=== PATIENT | female | born 1990 | race Caucasian/White ===

== ENCOUNTER → 2017-01-23 | Outpatient (CLI) | payer OTHER ==
[2017-01-23 13:10] LABS: BASOPHILS # (AUTO) 0.1 10^3/uL (0.0-0.1); BASOPHILS % (AUTO) 1.5 %; EOSINOPHILS # (AUTO) 0.3 10^3/uL (0.0-0.7); EOSINOPHILS % (AUTO) 4.8 %; HCT - HEMATOCRIT 40.5 % (37.0-47.0); HGB - HEMOGLOBIN 13.4 g/dL (12.0-16.0); LYMPHOCYTES # (AUTO) 1.1 10^3/uL (1.5-3.5); LYMPHOCYTES % (AUTO) 16.7 %; MEAN CORPUSCULAR HEMOGLOBIN 29.8 pg (27.0-31.0); MEAN CORPUSCULAR HGB CONC 33.1 g/dL (32.0-36.0); MEAN CORPUSCULAR VOLUME 89.9 fL (81.0-99.0); MEAN PLATELET VOLUME 7.3 fL (7.9-10.8); MONOCYTES # (AUTO) 0.4 10^3/uL (0.0-1.0); MONOCYTES % (AUTO) 6.1 %; NEUTROPHILS # (AUTO) 4.6 10^3/uL (1.5-6.6); NEUTROPHILS % (AUTO) 70.9 %; RED BLOOD COUNT 4.51 10^6/uL (4.20-5.40); RED CELL DISTRIBUTION WIDTH 14.6 % (12.0-15.0); UNCORRECTED WHITE BLOOD COUNT 6.5 x10^3/uL; WHITE BLOOD COUNT 6.5 x10^3/uL (4.8-10.8)
[2017-01-23 13:21] LABS: BILIRUBIN,TOTAL 0.4 mg/dL (0.2-1.0); CALCIUM 8.9 mg/dL (8.5-10.3); CREATININE 0.7 mg/dL (0.4-1.0); POTASSIUM 3.9 mmol/L (3.5-5.0); TOTAL PROTEIN 7.4 g/dL (6.7-8.2)
== END ==
LOC: LAB.R 08:00
PROVIDERS: ATTEND Nurse Practitioner Primary Care
DX: Z00.00 Encounter for general adult medical examination without abnormal findings (principal); Q90.9 Down syndrome, unspecified
CPT/HCPCS: 80053; 84443; 85025

== ENCOUNTER 2017-10-24 16:57 | Outpatient (CLI) | payer BC | END 2017-10-24 16:58 | disposition critical access hospital (66) | LOC: EMS 16:57 | PROVIDERS: ATTEND Surgery | DX: M54.5 Low back pain (principal); W17.89XA Other fall from one level to another, initial encounter; Y92.008 Other place in unspecified non-institutional (private) residence as the place of occurrence of the external cause | CPT/HCPCS: A0425; A0429 ==

== ENCOUNTER 2017-10-24 17:04 | Emergency (ER) | payer BC ==
[2017-10-24] MEDS ORDERED: MORPHINE 10 MG/ML VIAL IM STA (17:13)
--- NOTE | 2017-10-24 17:19 | ED Physician Documentation ---
PD HPI BACK INJURY - Stated complaint Stated Complaint: FALL BACK PX - History obtained from History obtained from: Patient, Family (both parents) - History of Present Illness Location: Other (26-year-old woman with history of Down syndrome, but seems to be very high functioning. They are redoing their deck and they did not have railings. She moved a chair over by that and fell off the deck about 4 feet onto her back and complains of severe mid to low back pain. She has no other apparent injuries other than a scrape on her foot, but does not remember actually falling.) Review of Systems Ten Systems: 10 systems reviewed and negative Constitutional: denies: Fever, Chills Nose: denies: Rhinorrhea / runny nose, Congestion Cardiac: denies: Chest pain / pressure, Palpitations Respiratory: denies: Dyspnea, Cough PD PAST MEDICAL HISTORY - Past Medical History Past Medical History: Yes Neuro: Other (Janell) Other Past Medical History: Down Syndrome - Past Surgical History Past Surgical History: No - Present Medications Home Medications: Ambulatory Orders Medication Instructions Recorded Confirmed No Known Home Medications [No 10/24/17 10/24/17 Known Home Medications] - Allergies Allergies/Adverse Reactions: Allergies Allergy/AdvReac Type Severity Reaction Status Date / Time Penicillins Allergy Anaphylaxis Verified 10/24/17 17:13 - Social History Does the pt smoke?: No Smoking Status: Never smoker PD ED PE NORMAL - Vitals Vital signs reviewed: Yes - General General: Alert and oriented X 3, No acute distress - HEENT HEENT: PERRL, EOMI - Neck Neck: No bony TTP, Other (Maintained in a c-collar pending imaging given potential distracting injury) - Cardiac Cardiac: RRR, No murmur - Respiratory Respiratory: No respiratory distress, Clear bilaterally - Abdomen Abdomen: Normal bowel sounds, Soft, Non tender - Back Back: Other (Quite tender to the mid and lower thoracic spine) - Derm Derm: Normal color, Warm and dry, Other (Nontender abrasion over the top of the foot, a little bigger than a quarter.) - Extremities Extremities: Other (The patient has equal and normal Achilles and patellar reflexes bilaterally. Normal sensation in all areas of the legs. Patient denies saddle anesthesia. Normal strength in flexion-extension at the ankles, knees, and flexion of the hips.) - Neuro Neuro: Alert and oriented X 3, Normal speech - Psych Psych: Normal mood, Normal affect Results - Vitals Vitals: Vital Signs - 24 hr 10/24/17 10/24/17 10/24/17 17:06 18:17 18:40 Temperature 36.6 C 36.3 C L 36.6 C Heart Rate 77 80 75 Respiratory 22 20 12 Rate Blood Pressure 116/69 108/55 L 100/59 L O2 Saturation 98 100 99 Oxygen O2 Source Room air - Labs Labs: Laboratory Tests 10/24/17 10/24/17 10/24/17 18:07 18:07 18:07 WBC 10.2 RBC 4.83 Hgb 14.1 Hct 43.8 MCV 90.6 MCH 29.2 MCHC 32.2 RDW 14.1 Plt Count 301 MPV 6.9 L Neut # 8.2 H Lymph # 1.3 L Hood # 0.3 Eos # 0.2 Baso # 0.2 H Absolute Nucleated RBC 0.00 Nucleated RBC % 0.0 PT 12.6 INR 1.1 Sodium 138 Potassium 3.9 Chloride 102 Carbon Dioxide 29 Anion Gap 7.0 BUN 15 Creatinine 0.7 Estimated GFR (MDRD) 101 Glucose 107 H Calcium 9.7 Total Bilirubin 0.2 AST 30 ALT 19 Alkaline Phosphatase 75 Total Protein 8.3 H Albumin 4.2 Globulin 4.1 Albumin/Globulin Ratio 1.0 Lipase 26 Serum HCG, Qual NEGATIVE - Rads (name of study) CT Head Radiology: EMP read contemporaneously (NAD) CT C spine Radiology: EMP read contemporaneously (DJD no frx (C collar taken off at 1830)) CT T Spine Radiology: EMP read contemporaneously (Unstable 3 column Chance fracture of T11 involving the left facet joint with mild spinal canal stenosis due to buckling of the posterior cortex, there is no evident epidural hemorrhage. There are also fractures of the T10 inferior articulating facets and T10 spinous process, mild subluxation of the T10 and T11 facet joints without dislocation. There are superior endplate fractures of T7 and T10. She also has T6 and T9 spinous process fractures and a nondisplaced left posterior fourth rib fracture.) CT L spine Radiology: EMP read contemporaneously (no L spine frx) PD MEDICAL DECISION MAKING - ED course ED course: 26-year-old woman with severe back pain after a fall directly onto her back. No possibility of per her and her parents. She went over to CT and on my view of the CT she has a at least 2 column complicated fracture of her thoracic spine T10 and T11. She is neuro intact. [facility] was contacted at 6 PM for orthopedic consultation and likely transfer. She was accepted there by Dr. Vy Vidal at 6:50 PM, cobras were completed in the family consented. Departure - Departure Disposition: 02 Transfer Acute Care Hosp Clinical Impression: Fall from height of greater than 3 feet, Spinous process fracture Closed T10 fracture Qualifiers: Encounter type: initial encounter Fracture morphology: burst- unstable Qualified Code(s): S22.072A - Unstable burst fracture of T9-T10 vertebra, initial encounter for closed fracture Injury of back Qualifiers: Encounter type: initial encounter Qualified Code(s): S39.92XA - Unspecified injury of lower back, initial encounter Rib fracture Qualifiers: Encounter type: initial encounter Rib fracture type: single rib Fracture type: closed Laterality: left Qualified Code(s): S22.32XA - Fracture of one rib, left side, initial encounter for closed fracture Condition: Stable
[2017-10-24] MEDS ORDERED: ONDANSETRON ODT 4 MG TABLET TL STA (17:24)
[2017-10-24] MEDS ORDERED: SODIUM CHLORIDE 0.9% 1,000 ML IV ONE (17:54)
[2017-10-24] MEDS ORDERED: MORPHINE 2 MG/ML SYRINGE IVP STA (18:10)
--- NOTE | 2017-10-24 18:12 | CT Report ---
EXAM: CT HEAD EXAM DATE: 10/24/2017 06:02 PM. CLINICAL HISTORY: Fall, amnesia, back injury. COMPARISON: None. TECHNIQUE: Multiaxial CT images were obtained from the foramen magnum to the vertex. Reformats: Coron al. IV contrast: None. In accordance with CT protocol optimization, one or more of the following dose reduction techniques w ere utilized for this exam: automated exposure control, adjustment of mA and/or KV based on patient s ize, or use of iterative reconstructive technique. FINDINGS: Parenchyma: No intraparenchymal hemorrhage. No evidence of mass, midline shift, or CT findings of inf arction. Bruno-white differentiation is distinct. Extraaxial Spaces: Normal for age. No subdural or epidural collections identified. Ventricles: Normal in size and position. Sinuses and Orbits: Mucosal thickening maxillary sinuses. Bones: No evidence of fracture or calvarial defect. Other: None. IMPRESSION: Unremarkable noncontrast head CT. No intracranial bleed or mass effect. [facility] Referring Provider Line: [phone] SITE ID: [id number]
[2017-10-24 18:13] LABS: BASOPHILS # (AUTO) 0.2 10^3/uL (0.0-0.1); BASOPHILS % (AUTO) 1.8 %; EOSINOPHILS # (AUTO) 0.2 10^3/uL (0.0-0.7); HGB - HEMOGLOBIN 14.1 g/dL (12.0-16.0); LYMPHOCYTES # (AUTO) 1.3 10^3/uL (1.5-3.5); LYMPHOCYTES % (AUTO) 12.6 %; MEAN CORPUSCULAR HEMOGLOBIN 29.2 pg (27.0-31.0); MEAN CORPUSCULAR HGB CONC 32.2 g/dL (32.0-36.0); MEAN CORPUSCULAR VOLUME 90.6 fL (81.0-99.0); MEAN PLATELET VOLUME 6.9 fL (7.9-10.8); MONOCYTES # (AUTO) 0.3 10^3/uL (0.0-1.0); MONOCYTES % (AUTO) 3.1 %; NEUTROPHILS # (AUTO) 8.2 10^3/uL (1.5-6.6); NEUTROPHILS % (AUTO) 80.5 %; PLT - PLATELET COUNT 301 10^3/uL (130-450); RED BLOOD COUNT 4.83 10^6/uL (4.20-5.40); RED CELL DISTRIBUTION WIDTH 14.1 % (12.0-15.0); WHITE BLOOD COUNT 10.2 x10^3/uL (4.8-10.8)
[2017-10-24 18:19] LABS: INR 1.1 (0.8-1.2); PT - PROTHROMBIN TIME 12.6 secs (9.9-12.6)
[2017-10-24 18:22] LABS: ALBUMIN 4.2 g/dL (3.2-5.5); ALKALINE PHOSPHATASE 75 IU/L (42-121); ALT ALANINE AMINOTRANSFERASE 19 IU/L (10-60); AST ASPARTATE AMINOTRANSFERASE 30 IU/L (10-42); BILIRUBIN,TOTAL 0.2 mg/dL (0.2-1.0); BUN - BLOOD UREA NITROGEN 15 mg/dL (6-20); CALCIUM 9.7 mg/dL (8.5-10.3); CARBON DIOXIDE - CO2 29 mmol/L (21-32); CHLORIDE 102 mmol/L (101-111); CREATININE 0.7 mg/dL (0.4-1.0); GFR - MDRD 101 (>89); GLUCOSE 107 mg/dL (70-100); LIPASE 26 U/L (22-51); SODIUM 138 mmol/L (135-145); TOTAL PROTEIN 8.3 g/dL (6.7-8.2)
--- NOTE | 2017-10-24 18:24 | CT Report ---
EXAM: CT CERVICAL SPINE WITHOUT CONTRAST DATE: 10/24/2017 06:02 PM. HISTORY: Fall, amnesia, back injury. COMPARISONS: None. TECHNIQUE: Thin-section axial images were acquired of the cervical spine without contrast. Post-proce ssing: Coronal and sagittal reformats. Other: None. In accordance with CT protocol optimization, one or more of the following dose reduction techniques w ere utilized for this exam: automated exposure control, adjustment of mA and/or KV based on patient s ize, or use of iterative reconstructive technique. FINDINGS: Alignment: No scoliosis or spondylolisthesis. Bones: No fracture or bone lesion. Interspace Levels/Facets: C1-C2: Unremarkable. C2-C3: Unremarkable. C3-C4: Unremarkable. C4-C5: Unremarkable. C5-C6: Slight disk space narrowing with minimal osteophytes. C6-C7: Unremarkable. C7-T1: Unremarkable. Other: The paravertebral and prevertebral soft tissues are unremarkable. IMPRESSION: Minimal degenerative disk disease C5-C6, otherwise unremarkable cervical spine CT. [facility] Referring Provider Line: [phone] SITE ID: [id number]
--- NOTE | 2017-10-24 18:52 | CT Report ---
EXAM: CT THORACIC SPINE WITHOUT CONTRAST EXAM DATE: 10/24/2017 06:02 PM. CLINICAL HISTORY: Fall, amnesia, back inj. COMPARISONS: None. TECHNIQUE: Thin-section axial images were acquired of the thoracic spine from C7 to L1 without contra st. Post-processing: Coronal and sagittal reformats. Other: None. IV Contrast: None. In accordance with CT protocol optimization, one or more of the following dose reduction techniques w ere utilized for this exam: automated exposure control, adjustment of mA and/or KV based on patient s ize, or use of iterative reconstructive technique. FINDINGS: Alignment: No scoliosis or spondylolisthesis. Bones: 3 column fracture of T11 with mild height loss, buckling of the posterior cortex and extension into the left pedicle and posterior elements involving the left T10-T11 facet joint. The fracture al so involves the spinous process and inferior articular facets of T10. Nondisplaced superior endplate fracture of T10. Mildly displaced fracture T9 spinous process. Nondisplaced left posterior fourth rib fracture. Fracture of the superior endplate of T7 with minimal height loss. Nondisplaced fracture T6 spinous process. Disk Levels/Facets: Narrowing of the spinal canal at T11 due to buckling of the posterior cortex. No epidural hemorrhage demonstrated. Spinal canal otherwise patent. Mild subluxation of T10-T11 facet joints without disloca tion. Musculature: Normal. Other: No visualized pneumothorax. IMPRESSION: 1. Unstable 3 column Chance fracture of T11 involving the left facet joint with mild spinal canal pino nosis due to buckling of the posterior cortex. No epidural hemorrhage evident. 2. Fractures of the T10 inferior articulating facets and T10 spinous process. Mild subluxation of the T10-T11 facet joints without dislocation. 3. Superior endplate fractures of T7 and T10. 4. T6 and T9 spinous process fractures. 5. Nondisplaced left posterior fourth rib fracture. [facility] The above findings were discussed with AUDELIA Mckenzie by Dr. Chester Mcdaniel at 18:50 hrs on . Referring Provider Line: [phone] SITE ID: [id number]
--- NOTE | 2017-10-24 18:53 | CT Report ---
EXAM: CT LUMBAR SPINE WITHOUT CONTRAST EXAM DATE: 10/24/2017 06:02 PM. CLINICAL HISTORY: Fall, amnesia, back inj. COMPARISONS: None. TECHNIQUE: Thin-section axial images were acquired of the lumbar spine from T12 to S1 without contras t. Post-processing: Coronal and sagittal reformats. Other: None. In accordance with CT protocol optimization, one or more of the following dose reduction techniques w ere utilized for this exam: automated exposure control, adjustment of mA and/or KV based on patient s ize, or use of iterative reconstructive technique. FINDINGS: Alignment: No scoliosis or spondylolisthesis. Bones: Five [id number] lumbar vertebral bodies are present. 3 column fracture of T11 as describe d on the thoracic spine CT. No additional fracture demonstrated. Lumbar vertebral bodies maintain nor mal height and alignment. Disk Levels/Facets: Spinal canal narrowing at T11, otherwise widely patent. Musculature: Unremarkable. Other: The visualized retroperitoneum is unremarkable. IMPRESSION: 1. No lumbar spine fracture. 2. Unstable 3 column Chance fracture of T11 as described on the thoracic spine CT. [facility] Referring Provider Line: [phone] SITE ID: [id number]
[2017-10-24 19:05] LABS: HCG,QUALITATIVE BLOOD NEGATIVE
[2017-10-24 19:50] VITALS: BP 130/66
== END 2017-10-24 19:58 | disposition short-term general hospital (02) ==
LOC: EDUNIT# → ED 17:04
DX: S22.088A Other fracture of T11-T12 vertebra, initial encounter for closed fracture (principal); S22.078A Other fracture of T9-T10 vertebra, initial encounter for closed fracture; S22.068A Other fracture of T7-T8 thoracic vertebra, initial encounter for closed fracture; S22.058A Other fracture of T5-T6 vertebra, initial encounter for closed fracture; S22.32XA Fracture of one rib, left side, initial encounter for closed fracture; W17.89XA Other fall from one level to another, initial encounter; Y92.018 Other place in single-family (private) house as the place of occurrence of the external cause; Q90.9 Down syndrome, unspecified
CPT/HCPCS: 36415; 70450; 72125; 72128; 72131; 80053; 83690; 84703; 85025; 85610; 96361; 96372; 96374; 99284; J2270; Q0162

== ENCOUNTER 2017-10-24 19:58 | Outpatient (CLI) | payer BC | END 2017-10-24 19:59 | disposition short-term general hospital (02) | LOC: EMS 19:58 | PROVIDERS: ATTEND Surgery | DX: S22.079A Unspecified fracture of T9-T10 vertebra, initial encounter for closed fracture (principal); W17.89XA Other fall from one level to another, initial encounter | CPT/HCPCS: A0170; A0425; A0426 ==

== ENCOUNTER 2020-05-16 15:06 | Outpatient (CLI) | payer SELFPAY | END 2020-05-16 15:07 | disposition home or self-care (01) | LOC: COV 15:06 | PROVIDERS: ATTEND Family Medicine | DX: Z20.828 Contact with and (suspected) exposure to other viral communicable diseases (principal) ==

== ENCOUNTER 2020-06-08 14:47 | Outpatient (CLI) | payer SELFPAY | END 2020-06-08 14:48 | disposition home or self-care (01) | LOC: COV 14:47 | PROVIDERS: ATTEND Family Medicine | DX: Z20.828 Contact with and (suspected) exposure to other viral communicable diseases (principal) ==